=== PATIENT | female | born 1935 | race Hispanic/Latino ===

== ENCOUNTER 2019-12-11 07:38 | Inpatient (IN) | payer OTHER, MEDICARE ==
[~2019-12-11 07:38] MED LIST: AMLO5TAB9 PO; ESOM20CA39 PO; METF-444 PO; ROSU10TA28 PO
[2019-12-11 07:58] LABS: HEMATOCRIT 26.1 % (36-48); LYMPHOCYTES % (AUTO) 86.3 % (21.0-51.0); MEAN CORPUSCULAR HEMOGLOBIN 32.7 pg (27.0-33.0); MEAN CORPUSCULAR HGB CONC 34.5 g/dL (32.0-36.0); MEAN CORPUSCULAR VOLUME 94.9 fL (79-99); MONOCYTES % (AUTO) 6.8 % (3.0-13.0); NEUTROPHILS % (AUTO) 5.5 % (40.0-77.0); PLATELET COUNT (AUTO) 24 K/uL (130-400); RED BLOOD CELL COUNT(AUTO) 2.75 MIL/uL (4.00-5.50); RED CELL DISTRIBUTION WIDTH 16.1 % (11.0-15.5)
[2019-12-11 08:14] LABS: INR 1.06 (0.85-1.15); PARTIAL THROMBOPLASTIN TIME 27.8 SEC (26.3-35.5); PROTHROMBIN TIME 11.4 SEC (9.6-11.6)
[2019-12-11] MEDS ORDERED: ONDANSETRON HCL 4 MG/2 ML VIAL ONE (08:14)
[2019-12-11] MEDS ORDERED: FAMOTIDINE/PF 20 MG/2 ML VIAL IV ONE (08:14)
[2019-12-11 08:15] LABS: CREATININE 0.7 mg/dL (0.5-1.5); POTASSIUM 3.1 mmol/L (3.5-5.1)
[2019-12-11 08:22] LABS: B-TYPE NATRIURETIC PEPTIDE 160 pg/mL (0-100)
[2019-12-11 08:30] LABS: ALBUMIN 2.7 g/dL (3.5-5.0); BILIRUBIN,TOTAL 0.8 mg/dL (0.2-1.0); THYROID STIMULATING HORMONE 3.04 uIU/mL (0.36-3.74); TOTAL PROTEIN, SERUM 6.1 g/dL (6.0-8.3)
[2019-12-11 08:37] LABS: WHITE BLOOD COUNT (AUTO) 0.7 K/uL (4.8-10.8)
[2019-12-11] MEDS ORDERED: POTASSIUM BICARB/CIT AC 25 MEQ TABLET.EFF ONE (08:43)
[2019-12-11] MEDS ORDERED: SODIUM CHLORIDE 0.9% 1000ML 1,000 ML IV SCH (09:30)
[2019-12-11] MEDS ORDERED: POTASSIUM CHLORIDE 20 MEQ ERTAB PO PRN (09:30)
[2019-12-11] MEDS ORDERED: POTASSIUM CHLORIDE 20MEQ/100ML 100 ML IV PRN (09:30)
[2019-12-11] MEDS ORDERED: LIDOCAINE HCL-MPF 1% 2ML VIAL IJ PRN (09:30)
[2019-12-11] MEDS ORDERED: SODIUM CHLORIDE 0.9% 1000ML 1,000 ML IV ONE (10:11)
[2019-12-11] MEDS ORDERED: POTASSIUM CHLORIDE 40 MEQ in SODIUM CHLORIDE 0.9% 1000ML 1,000 ML IV SCH (11:00)
[2019-12-11] MEDS: INSULIN R PO SS1 SQ SCH ×3 (11:30→21:00)
[2019-12-11] MEDS ORDERED: MORPHINE SULFATE 2 MG/ML 1ML SYG ONE (13:48)
[2019-12-11 14:21] LABS: APPEARANCE,URINE Clear (CLEAR); BILIRUBIN,URINE Negative (NEGATIVE); COLOR,URINE Yellow (YELLOW); GLUCOSE, URINE (UA) Negative (NEGATIVE); KETONES,URINE Negative (NEGATIVE); LEUKOCYTE ESTERASE ,URINE Negative (NEGATIVE); NITRATE,URINE Positive (NEGATIVE); OCCULT BLOOD,URINE Negative (NEGATIVE); PH,URINE 8.5 (5.0-8.0); PROTEIN,URINE Negative (NEGATIVE); UROBILINOGEN,URINE 0.2 mg/dL (0.2-1.0)
[2019-12-11 14:44] LABS: BACTERIA,URINE Many /HPF (None Seen); RBC,URINE 0-1 /HPF (0-1); SQUAMOUS EPITHELIAL CELL,UR 0-2 /HPF (0-2)
[2019-12-11 16:18] LABS: CREATINE KINASE, TOTAL 51 U/L (21-232); MYOGLOBIN 36 ng/mL (10-92); TROPONIN I < 0.04 ng/mL (0.00-0.06)
--- NOTE | 2019-12-11 17:00 | NUR ---
ADMISSION PT RECEIVED FROM ER VIA PT'S OWN WC. PLACED IN REVERSES ISOLATION. WALKED W/ASSISTANCE TO HOSPITAL BED. TOLERATED WELL. NO SOB ON EXERTION. NO DISTRESS NOTED. DENIES CHEST PAIN. DENIES PALPITATIONS. TELE: AFIB. DENIES N/V AND/OR DIARRHEA. DENIES ABDOMINAL PAIN. NPO STATUS REINFORCED. PT TO HAVE HIDA SCAN LATER TODAY. 0.9% NACL W/40 MEQ KCL INFUSING @ 75 ML/HR. ORIENTED TO RM. INSTRUCTED TO CALL FOR ASSISTANCE. CALL MARIA DOLORES W/REACH.
[2019-12-11 17:03] VITALS: BP 122/88
[2019-12-11 19:13] VITALS: BP 121/61
[2019-12-11] MEDS: ACETAMINOPHEN 325 MG TAB PO PRN (21:49)
[2019-12-11] MEDS: POTASSIUM CHLORIDE 10% ELIXIR 20 MEQ/15 ML UDCUP PO PRN (21:49)
[2019-12-11 23:26] VITALS: BP 143/65
[2019-12-12 00:05] LABS: CREATINE KINASE, TOTAL 16 U/L (21-232); MYOGLOBIN 36 ng/mL (10-92); TROPONIN I < 0.04 ng/mL (0.00-0.06)
[2019-12-12] MEDS: POTASSIUM CHLORIDE 10% ELIXIR 20 MEQ/15 ML UDCUP PO PRN ×2 (00:35→05:27)
[2019-12-12 03:12] VITALS: BP 132/73
[2019-12-12 04:26] LABS: HEMATOCRIT 21.1 % (36-48); LYMPHOCYTES % (AUTO) 69.4 % (21.0-51.0); MEAN CORPUSCULAR HGB CONC 33.6 g/dL (32.0-36.0); MONOCYTES % (AUTO) 17.7 % (3.0-13.0); NEUTROPHILS % (AUTO) 12.9 % (40.0-77.0); PLATELET COUNT (AUTO) 16 K/uL (130-400); RED BLOOD CELL COUNT(AUTO) 2.22 MIL/uL (4.00-5.50); RED CELL DISTRIBUTION WIDTH 15.7 % (11.0-15.5)
[2019-12-12 04:30] LABS: WHITE BLOOD COUNT (AUTO) 0.6 K/uL (4.8-10.8)
[2019-12-12 04:37] LABS: CREATININE 0.7 mg/dL (0.5-1.5); MAGNESIUM 1.4 mg/dL (1.80-2.40); POTASSIUM 4.6 mmol/L (3.5-5.1)
[2019-12-12 05:13] LABS: BAND NEUTROPHILS % (MANUAL) 4 % (0-2); LYMPHOCYTES % (MANUAL) 84 % (22-44); MONOCYTES % (MANUAL) 8 % (2-9); SEGMENTED NEUTROPHILS % 4 % (40-70)
[2019-12-12 05:14] LABS: MAN.DIFF COMMENT-IMPRESSION MANUAL DIFFERENTIAL
[2019-12-12 05:17] LABS: PLATELET MORPHOLOGY COMMENT MARKED DECREASE
[2019-12-12] MEDS: INSULIN R PO SS1 SQ SCH ×4 (06:59→20:41)
[2019-12-12 07:30] VITALS: BP 127/67
--- NOTE | 2019-12-12 08:00 | NUR ---
AM ASSESSMENT PT LAYING IN BED, RESTING. REVERSES ISOLATION. A/O X 3. NO SOB. NO DISTRESS NOTED. DENIES CHEST PAIN OR DISCOMFORT. DENIES PALPITATIONS. TELE: SR. DENIES NAUSEA @ THIS TIME. (+) DIARRHEA. MD TO BE NOTIFIED. UP W/ASSISTANCE. INSTRUCTED TO CALL FOR ASSISTANCE. CALL MARIA DOLORES W/IN REACH.
[2019-12-12 08:35] LABS: CREATINE KINASE, TOTAL 12 U/L (21-232); MYOGLOBIN 46 ng/mL (10-92); TROPONIN I < 0.04 ng/mL (0.00-0.06)
[2019-12-12] MEDS: ACETAMINOPHEN 325 MG TAB PO PRN (10:42)
[2019-12-12 11:30] VITALS: BP 115/68
[2019-12-12 15:30] VITALS: BP 137/66
[2019-12-12] MEDS ORDERED: TBO-FILGRASTIM 480 MCG/0.8 ML ML SQ SCH (15:30)
[2019-12-12] MEDS: ONDANSETRON HCL 4 MG/2 ML VIAL IVP PRN (16:33)
[2019-12-12] MEDS: MORPHINE SULFATE 2 MG/ML 1ML SYG IVP PRN (16:35)
--- NOTE | 2019-12-12 17:00 | NUR ---
TRANSFER PT TRANSFERRED TO [facility] VIA WC (PT'S OWN WC) BY Kassy APONTE PCP. NO DISTRESS NOTED.
--- NOTE | 2019-12-12 17:45 | NUR ---
TRANSFER TELEPHONE REPORT GIVEN TO Nick OAKLEY RN.
[2019-12-12 19:22] VITALS: BP 133/72
[2019-12-12] MEDS: ATORVASTATIN CALCIUM 20 MG TABLET PO SCH (20:36)
[2019-12-13 00:01] VITALS: BP 109/60
[2019-12-13] MEDS: ONDANSETRON HCL 4 MG/2 ML VIAL IVP PRN (01:10)
[2019-12-13] MEDS: MORPHINE SULFATE 2 MG/ML 1ML SYG IVP PRN ×3 (01:11→21:04)
--- NOTE | 2019-12-13 01:18 | NUR ---
PATIENT WITH C/O ABDOMINAL PAIN, SAME AREA, EPIGASTRIC. PER PRN ORDERS ADMINISTERED MORPHINE 2 MG IV ALONG WITH ZOFRAN 4 MG IV TOP PREVENT NAUSEA. WILL CONT TO MONITOR CLOSELY.
[2019-12-13 04:05] VITALS: BP 125/69
[2019-12-13] MEDS: INSULIN R PO SS1 SQ SCH ×4 (05:40→21:00)
[2019-12-13 07:57] VITALS: BP 119/67
[2019-12-13] MEDS: AMLODIPINE BESYLATE 5 MG TAB PO SCH (07:57)
[2019-12-13] MEDS: PANTOPRAZOLE SODIUM 40 MG TABLET.DR PO SCH (07:57)
[2019-12-13] MEDS: TBO-FILGRASTIM 480 MCG/0.8 ML ML SQ SCH (08:01)
[2019-12-13 11:40] VITALS: BP 126/62
[2019-12-13] MEDS ORDERED: MAG HYDROX/AL HYDROX/SIMETH ES 30 ML SUSP UDCUP PO PRN (13:00)
[2019-12-13] MEDS ORDERED: PHARMACY COMMUNICATION MISC SCH (13:00)
[2019-12-13 13:05] LABS: HEMATOCRIT 23.1 % (36-48); MEAN CORPUSCULAR HEMOGLOBIN 33.1 pg (27.0-33.0); MEAN CORPUSCULAR HGB CONC 34.6 g/dL (32.0-36.0); MEAN CORPUSCULAR VOLUME 95.5 fL (79-99); PLATELET COUNT (AUTO) 18 K/uL (130-400); RED BLOOD CELL COUNT(AUTO) 2.42 MIL/uL (4.00-5.50); RED CELL DISTRIBUTION WIDTH 15.9 % (11.0-15.5); WHITE BLOOD COUNT (AUTO) 2.1 K/uL (4.8-10.8)
[2019-12-13 13:43] LABS: BAND NEUTROPHILS % (MANUAL) 8 % (0-2); BASOPHILS % (MANUAL) 3 % (0-2); LYMPHOCYTES % (MANUAL) 17 % (22-44); MONOCYTES % (MANUAL) 32 % (2-9); REACTIVE LYMPHOCYTES 6 % (0-0); SEGMENTED NEUTROPHILS % 34 % (40-70)
[2019-12-13 13:44] LABS: PLATELET MORPHOLOGY COMMENT MARKED DECREASE
[2019-12-13 16:00] VITALS: BP 116/83
--- NOTE | 2019-12-13 17:05 | NUR ---
INITIAL: Pt currently in reverse isolation. Called and spoke w EC Cades Ted (pts son). Per Mr Jean prior to admission pt was living w her spouse and dtr Kelin Machado. Pt was previously independent w ambulation and ADLs, he mentions she was very active would walk about 4blocks a day. Pt has avail at home a walker, rollator and wc. She has provider services but he is unable to recall #of hrs. Per Mr. Jean family is able to assist pt at mi and plan is for pt to return home at mi. CM to continue to follow and wait for Md recommendations. Addendum: 12/13/19 at 1710 by KARL AYALA Amended: Links added.
--- NOTE | 2019-12-13 18:30 | NUR ---
NOTE SPOKE TO DR BARRETT AND RELAYED RESULTS FROM [facility]. HE SAID JUST TO REPEAT LAB FOR AM. NO ORDERS FOR TRANSFUSIONS.
[2019-12-13 20:00] VITALS: BP 128/68
[2019-12-13] MEDS: ATORVASTATIN CALCIUM 20 MG TABLET PO SCH (21:03)
[2019-12-14 00:52] VITALS: BP 130/67
[2019-12-14 04:00] VITALS: BP 131/62
--- NOTE | 2019-12-14 05:10 | NUR ---
abd pain maalox given for abd pain/gas
[2019-12-14 05:38] LABS: HEMATOCRIT 23.9 % (36-48); MEAN CORPUSCULAR HEMOGLOBIN 32.3 pg (27.0-33.0); MEAN CORPUSCULAR HGB CONC 34.3 g/dL (32.0-36.0); MEAN CORPUSCULAR VOLUME 94.1 fL (79-99); PLATELET COUNT (AUTO) 23 K/uL (130-400); RED BLOOD CELL COUNT(AUTO) 2.54 MIL/uL (4.00-5.50); RED CELL DISTRIBUTION WIDTH 15.7 % (11.0-15.5); WHITE BLOOD COUNT (AUTO) 4.9 K/uL (4.8-10.8)
[2019-12-14] MEDS: INSULIN R PO SS1 SQ SCH ×2 (05:46→11:19)
[2019-12-14 05:51] LABS: CREATININE 0.7 mg/dL (0.5-1.5); MAGNESIUM 1.3 mg/dL (1.80-2.40); POTASSIUM 3.2 mmol/L (3.5-5.1)
[2019-12-14 05:52] LABS: BAND NEUTROPHILS % (MANUAL) 12 % (0-2); BASOPHILS % (MANUAL) 4 % (0-2); LYMPHOCYTES % (MANUAL) 16 % (22-44); MONOCYTES % (MANUAL) 8 % (2-9); SEGMENTED NEUTROPHILS % 60 % (40-70)
[2019-12-14 05:53] LABS: MAN.DIFF COMMENT-IMPRESSION MANUAL DIFFERENTIAL; PLATELET MORPHOLOGY COMMENT DECREASED
[2019-12-14] MEDS: POTASSIUM CHLORIDE 10% ELIXIR 20 MEQ/15 ML UDCUP PO PRN ×2 (05:57→09:14)
--- NOTE | 2019-12-14 06:20 | NUR ---
MD Notified Dr Villarreal re mg + 1.3 and pt c/o constipation.See new order.
[2019-12-14 08:00] VITALS: BP 121/51
[2019-12-14] MEDS ORDERED: MAGNESIUM 2GM PREMIX 50ML 50 ML IV SCH (08:00)
[2019-12-14] MEDS ORDERED: LACTULOSE 20 GM/30 ML UDCUP PO SCH (09:00)
[2019-12-14] MEDS: PANTOPRAZOLE SODIUM 40 MG TABLET.DR PO SCH (09:01)
[2019-12-14] MEDS: AMLODIPINE BESYLATE 5 MG TAB PO SCH (09:01)
[2019-12-14] MEDS: TBO-FILGRASTIM 480 MCG/0.8 ML ML SQ SCH (11:23)
[2019-12-14] MEDS: MORPHINE SULFATE 2 MG/ML 1ML SYG IVP PRN (11:27)
[2019-12-14 12:00] VITALS: BP 137/64
--- NOTE | 2019-12-14 14:52 | NUR ---
DISCHARGE INSTRUCTIONS GIVEN TO PATIENT, WELL TO SON OVER THE PHONE. MADE AWARE PATIENT IS TO FOLLOW UP WITH DR. PLASENCIA DECEMBER 23 AT 0915, NO NEW PRESCRIPTIONS BEING SENT. AT THIS TIME PATIENT DENIES ABDOMINAL PAIN OR NAUSEA. PATIENT AMBULATING WITH ASSIST X 1 TO BEDSIDE COMMODE. BOWEL MOVEMENT TODAY SOFT BROWN. NO SIGNS AND SYMPTOMS OF ACUTE DISTRESS NOTED. PATIENT SON STATED HE WILL BE HERE AT 3:30PM TO PICK HER UP
== END 2019-12-14 16:00 | disposition home or self-care (01) | DRG 809 ==
LOC: EDH 07:38 → EDHIP 08:55 → 2AH 16:51 → 3AH 12-12 17:25
PROVIDERS: ADMIT Internal Medicine Infectious Disease; ATTEND Internal Medicine Infectious Disease
DX: D61.810 Antineoplastic chemotherapy induced pancytopenia (principal); C85.90 Non-Hodgkin lymphoma, unspecified, unspecified site; D69.59 Other secondary thrombocytopenia; T45.1X5A Adverse effect of antineoplastic and immunosuppressive drugs, initial encounter; E87.6 Hypokalemia; D64.81 Anemia due to antineoplastic chemotherapy; I48.91 Unspecified atrial fibrillation; M10.9 Gout, unspecified; E11.9 Type 2 diabetes mellitus without complications; E66.9 Obesity, unspecified; E78.5 Hyperlipidemia, unspecified; I10 Essential (primary) hypertension; Z83.3 Family history of diabetes mellitus; Y92.89 Other specified places as the place of occurrence of the external cause
CPT/HCPCS: 36415; 71045; 74176; 78227; 80048; 80053; 81001; 82150; 82550; 82948; 83690; 83735; 83874; 83880; 83930; 83935; 84443; 84484; 85025; 85027; 85610; 85730; 93005; 99291; A9537; G0378; J2405; J3475; J3480; J3490; J7030